=== PATIENT | female | born 1960 | race African-American/Black ===

== ENCOUNTER 2022-03-26 21:27 | Inpatient (IN) | payer OTHER, MEDICAID ==
[~2022-03-26] VITALS: Ht 172.7 cm; Wt 119.2 kg
[2022-03-26 23:02] LABS: Basophils # (auto) 0.1 10 ^3/uL (0-0.2); Basophils % (auto) 1.7 % (0.0-2.0); Eosinophils # (auto) 0.1 10 ^3/uL (0-0.8); Eosinophils % (auto) 1.6 % (0.0-7.0); Hematocrit 35.4 % (36.0-46.0); Hemoglobin 12.1 g/dL (12.2-16.2); Lymphocytes # (auto) 1.1 10 ^3/uL (0.4-5.4); Lymphocytes % (auto) 14.6 % (10.0-50.0); Mean Corpuscular Hemoglobin 31.1 pg (28.0-32.0); Mean Corpuscular Hgb Conc. 34.2 g/dL (32.0-36.0); Monocytes # (auto) 0.4 10 ^3/uL (0-1.3); Monocytes % (auto) 5.3 % (0.0-12.0); Neutrophils # (auto) 5.8 10 ^3/uL (1.6-8.6); Neutrophils % (auto) 76.8 % (37.0-80.0); Nucleated Red Blood Cells % 0.1 %; Red Blood Cells 3.89 10^6/uL (4.0-5.20); Red Cell Distribution Width 14.4 % (11.8-14.3); White Blood Cell 7.6 10^3/uL (4.4-10.8)
[2022-03-26 23:19] LABS: Calcium 8.1 mg/dL (8.5-10.1); Potassium 3.1 mmol/L (3.5-5.1)
[2022-03-26 23:23] LABS: BUN/Creatinine Ratio 16.7; Bilirubin, Total 0.6 mg/dL (0.2-1.0); Total Protein 6.3 g/dL (6.4-8.2)
[2022-03-26 23:32] LABS: Urine Bacteria NONE SEEN /hpf (None Seen); Urine Blood Negative /uL (Negative); Urine Hyaline Cast FEW /lpf (0 - 2); Urine Mucus FEW (None Seen); Urine Specific Gravity 1.013 (1.001-1.035); Urine WBC <1 /hpf (0 - 5)
[2022-03-27] MEDS: POTASSIUM CHL 20 Meq TABLET PO ONE ×2 (00:40→00:47)
[2022-03-27] MEDS ORDERED: POTASSIUM EFFERVESENT TAB 25 MEQ PO ONE (01:00)
[2022-03-27] MEDS ORDERED: SODIUM CHLORIDE 0.9% 500 ML IV ONE (01:30)
[2022-03-27] MEDS ORDERED: ONDANSETRON HCL 4 MG/2 ML VIAL IV PRN (02:00)
[2022-03-27] MEDS ORDERED: ACETAMINOPHEN 325 MG TAB PO PRN (02:00)
[2022-03-27] MEDS ORDERED: NITROGLYCERIN 0.4 MG SL TAB SL PRN (03:45)
[2022-03-27] MEDS ORDERED: MORPHINE SULFATE INJ 2 MG/ml SYRG IV PRN (03:45)
[2022-03-27] MEDS: SODIUM CHLOR 0.9% PF (SALINE LOCK) 10ML VIAL/SYR IV SCH ×3 (06:04→21:13)
[2022-03-27 06:05] LABS: Basophils # (auto) 0.2 10 ^3/uL (0-0.2); Basophils % (auto) 3.4 % (0.0-2.0); Eosinophils # (auto) 0.1 10 ^3/uL (0-0.8); Eosinophils % (auto) 1.8 % (0.0-7.0); Hematocrit 36.3 % (36.0-46.0); Hemoglobin 12.2 g/dL (12.2-16.2); Lymphocytes # (auto) 1.3 10 ^3/uL (0.4-5.4); Lymphocytes % (auto) 21.3 % (10.0-50.0); Mean Corpuscular Hemoglobin 30.7 pg (28.0-32.0); Mean Corpuscular Hgb Conc. 33.7 g/dL (32.0-36.0); Mean Corpuscular Volume 91.2 fL (80.0-100.0); Monocytes # (auto) 0.4 10 ^3/uL (0-1.3); Neutrophils # (auto) 3.9 10 ^3/uL (1.6-8.6); Neutrophils % (auto) 66.5 % (37.0-80.0); Nucleated Red Blood Cells % 0.1 %; Red Blood Cells 3.98 10^6/uL (4.0-5.20); Red Cell Distribution Width 14.7 % (11.8-14.3)
[2022-03-27 06:20] LABS: Albumin 2.9 g/dL (3.4-5.0); Calcium 8.5 mg/dL (8.5-10.1); Potassium 4.4 mmol/L (3.5-5.1)
[2022-03-27 06:26] LABS: BUN/Creatinine Ratio 14.9; Bilirubin, Total 0.6 mg/dL (0.2-1.0); Total Protein 6.4 g/dL (6.4-8.2)
[2022-03-27] MEDS: LEVOTHYROXINE SODIUM 50 MCG TAB PO SCH (06:37)
[2022-03-27] MEDS: FAMOTIDINE (10MG/ML) 2ML VL IV SCH ×2 (10:07→21:13)
[2022-03-27] MEDS: ASPirin 81 mg TAB PO SCH (10:08)
[2022-03-27] MEDS: HYDROcodone-ACET 5/325MG TAB PO PRN ×2 (10:11→19:59)
[2022-03-27] MEDS ORDERED: CEL100T PO (14:10)
[2022-03-27] MEDS ORDERED: PANT40TA2 PO (14:16)
[2022-03-27] MEDS ORDERED: CETI-195 PO (14:16)
[2022-03-27] MEDS ORDERED: [UNRECOGNIZED DRUG - CODE] PO (14:16)
[2022-03-27] MEDS ORDERED: LEV50T PO (14:16)
[2022-03-27] MEDS ORDERED: CITA10TA8 PO (14:16)
[2022-03-27] MEDS ORDERED: ASPI1TAB20 PO (14:16)
[2022-03-27] MEDS ORDERED: HYDR25TA4 PO (14:16)
[2022-03-27] MEDS ORDERED: SIMV-8 PO (14:16)
[2022-03-27] MEDS ORDERED: MONT-8 PO (14:16)
[2022-03-27] MEDS ORDERED: MECL12.514 PO (14:16)
[2022-03-27] MEDS ORDERED: PERCOT PO (14:16)
[2022-03-27] MEDS ORDERED: PREG100C PO (14:16)
[2022-03-27 17:00] VITALS: BP 146/72
[2022-03-27] MEDS: ATORVASTATIN 20 MG TAB PO SCH (21:13)
[2022-03-27] MEDS: DOCUSATE SOD 100 MG CAP PO PRN (21:13)
[2022-03-27 22:00] VITALS: BP 148/74
[2022-03-28 05:00] VITALS: BP 127/55
[2022-03-28 06:17] LABS: Basophils # (auto) 0 10 ^3/uL (0-0.2); Basophils % (auto) 0.7 % (0.0-2.0); Eosinophils # (auto) 0.1 10 ^3/uL (0-0.8); Eosinophils % (auto) 2.6 % (0.0-7.0); Hematocrit 36.8 % (36.0-46.0); Hemoglobin 12.6 g/dL (12.2-16.2); Lymphocytes # (auto) 1.8 10 ^3/uL (0.4-5.4); Lymphocytes % (auto) 32.2 % (10.0-50.0); Mean Corpuscular Hgb Conc. 34.3 g/dL (32.0-36.0); Mean Corpuscular Volume 90.5 fL (80.0-100.0); Monocytes # (auto) 0.6 10 ^3/uL (0-1.3); Monocytes % (auto) 10.1 % (0.0-12.0); Neutrophils % (auto) 54.4 % (37.0-80.0); Nucleated Red Blood Cells % 0.1 %; Red Blood Cells 4.06 10^6/uL (4.0-5.20); Red Cell Distribution Width 14.4 % (11.8-14.3); White Blood Cell 5.5 10^3/uL (4.4-10.8)
[2022-03-28] MEDS: SODIUM CHLOR 0.9% PF (SALINE LOCK) 10ML VIAL/SYR IV SCH ×3 (06:20→22:00)
[2022-03-28 06:21] LABS: Albumin 3.1 g/dL (3.4-5.0)
[2022-03-28 06:23] LABS: BUN/Creatinine Ratio 17.3
[2022-03-28 06:25] LABS: Bilirubin, Total 0.5 mg/dL (0.2-1.0); Total Protein 6.2 g/dL (6.4-8.2)
[2022-03-28] MEDS: LEVOTHYROXINE SODIUM 50 MCG TAB PO SCH (06:47)
[2022-03-28] MEDS: ASPirin 81 mg TAB PO SCH (08:47)
[2022-03-28] MEDS: FAMOTIDINE (10MG/ML) 2ML VL IV SCH ×2 (08:47→21:26)
[2022-03-28 09:00] VITALS: BP 149/68
[2022-03-28] MEDS ORDERED: CITALOPRAM HYDROBR 20 MG TAB PO ONE (11:15)
[2022-03-28] MEDS ORDERED: CELECOXIB 100 MG CAP PO ONE (11:15)
[2022-03-28] MEDS: OXYCODONE W/ ACETAMINOPHEN 5/325MG TABLET PO PRN ×3 (12:13→21:34)
[2022-03-28 13:00] VITALS: BP 154/83
[2022-03-28] MEDS: PREGABALIN 25 MG CAP PO SCH ×2 (13:34→21:27)
[2022-03-28 17:00] VITALS: BP 141/85
[2022-03-28] MEDS: ATORVASTATIN 20 MG TAB PO SCH (21:26)
[2022-03-28] MEDS: DOCUSATE SOD 100 MG CAP PO PRN (21:33)
[2022-03-28 22:00] VITALS: BP 148/74
[2022-03-29 05:00] VITALS: BP 140/61
[2022-03-29 05:41] LABS: Basophils # (auto) 0 10 ^3/uL (0-0.2); Basophils % (auto) 0.6 % (0.0-2.0); Eosinophils # (auto) 0.1 10 ^3/uL (0-0.8); Eosinophils % (auto) 2.5 % (0.0-7.0); Hematocrit 35.9 % (36.0-46.0); Hemoglobin 12.6 g/dL (12.2-16.2); Lymphocytes # (auto) 2.1 10 ^3/uL (0.4-5.4); Lymphocytes % (auto) 37.5 % (10.0-50.0); Mean Corpuscular Hemoglobin 31.4 pg (28.0-32.0); Mean Corpuscular Hgb Conc. 35.1 g/dL (32.0-36.0); Mean Corpuscular Volume 89.3 fL (80.0-100.0); Monocytes # (auto) 0.5 10 ^3/uL (0-1.3); Monocytes % (auto) 9.4 % (0.0-12.0); Neutrophils # (auto) 2.8 10 ^3/uL (1.6-8.6); Nucleated Red Blood Cells % 0.2 %; Red Blood Cells 4.02 10^6/uL (4.0-5.20); Red Cell Distribution Width 14.3 % (11.8-14.3); White Blood Cell 5.5 10^3/uL (4.4-10.8)
[2022-03-29] MEDS: SODIUM CHLOR 0.9% PF (SALINE LOCK) 10ML VIAL/SYR IV SCH ×2 (05:56→13:58)
[2022-03-29] MEDS: LEVOTHYROXINE SODIUM 50 MCG TAB PO SCH (05:57)
[2022-03-29] MEDS: PREGABALIN 25 MG CAP PO SCH ×2 (05:57→13:58)
[2022-03-29] MEDS: OXYCODONE W/ ACETAMINOPHEN 5/325MG TABLET PO PRN (05:57)
[2022-03-29 09:10] VITALS: BP 138/59
[2022-03-29] MEDS: ASPirin 81 mg TAB PO SCH (09:42)
[2022-03-29] MEDS: FAMOTIDINE (10MG/ML) 2ML VL IV SCH (09:42)
[2022-03-29] MEDS ORDERED: CELECOXIB 100 MG CAP PO SCH (10:00)
[2022-03-29] MEDS ORDERED: CITALOPRAM HYDROBR 20 MG TAB PO SCH (10:00)
[2022-03-29] MEDS ORDERED: CITALOPRAM HYDROBR 20 MG TAB PO ONE (12:00)
[2022-03-29 13:00] VITALS: BP 142/79
[2022-03-29] MEDS ORDERED: CITA-77 PO (15:47)
[2022-03-29 17:00] VITALS: BP 108/66
[2022-03-30] MEDS ORDERED: CITALOPRAM HYDROBR 20 MG TAB PO SCH (10:00)
== END 2022-03-29 18:40 | disposition home or self-care (01) | DRG 315 ==
LOC: ER 21:27 → EDBD 21:27 → TELE 03-27 03:41 → TELE-CENTR 03-27 14:59
PROVIDERS: ADMIT Nurse Practitioner Family; ATTEND Internal Medicine
DX: I95.9 Hypotension, unspecified (principal); Z68.41 Body mass index [BMI] 40.0-44.9, adult; D69.6 Thrombocytopenia, unspecified; E03.9 Hypothyroidism, unspecified; E66.01 Morbid (severe) obesity due to excess calories; E78.5 Hyperlipidemia, unspecified; E86.0 Dehydration; E87.6 Hypokalemia; G47.33 Obstructive sleep apnea (adult) (pediatric); Z20.822 Contact with and (suspected) exposure to COVID-19; G89.29 Other chronic pain; I10 Essential (primary) hypertension; Z86.73 Personal history of transient ischemic attack (TIA), and cerebral infarction without residual deficits; Z74.01 Bed confinement status; Z88.8 Allergy status to other drugs, medicaments and biological substances; Z89.519 Acquired absence of unspecified leg below knee; R00.1 Bradycardia, unspecified
CPT/HCPCS: 36415; 71045; 80053; 80061; 81001; 83036; 83605; 83880; 84443; 84484; 85025; 93306; 96360; G0378; J3490